=== PATIENT | male | born 1995 | race Caucasian/White ===

== ENCOUNTER 2020-11-27 18:05 | Emergency (ER) | payer OTHER, SELFPAY ==
[2020-11-27 18:30] VITALS: BP 144/103; PULSE 92; RESP 20; TEMP 36.4; O2SAT 100
--- NOTE | 2020-11-27 18:35 | ED_ITS ---
HPI - Extremity Problem General Chief complaint: Extremity Problem,Nontraumatic Stated complaint: L/foot pain Source: patient and RN notes reviewed Limitations: no limitations History of Present Illness HPI Narrative: The obese patient, previously mostly healthy [employer] , presents with toe pain. Patient states he has a prior history of gout, and now symptoms of flare in the last 3 days. Symptoms are mild, located at the left proximal great toe; no injury, streaking. Symptoms improved in the past last year when he went on a diet, but recurred. Related Data Allergies Allergy/AdvReac Type Severity Reaction Status Date / Time levofloxacin [From Levaquin] Allergy Swelling Verified 11/27/20 18:27 Review of Systems Review of Systems: Narrative: The patient has been informed that they may have pre-hypertension or Hypertension based on a BP reading in the department. I recommend that the patient call the primary care provider listed on their discharge instructions or a physician of their choice this week to arrange follow up for further evaluatio n of possible pre-hypertension or Hypertension General/Constitutional: No weight loss,fever Eyes: N0: Redness,discharge Ears/Nose/Throat: No: Epistaxis,ear discharge Respiratory: Denies: Hemoptysis Gastrointestinal: No Vomiting, Bleeding-rectal Skin: No Lumps, eruption Neurologic: No Focal Weakness,Sz Hematologic: Denies: Petechiae/Purpura Psychiatric: No: Suicida ideationl All Other Systems: Reviewed and Negative PMFSH Comments At time of signature, agree with nursing past medical, surgical, social and f amily history. There is no relevant family history pertinent to the presenting complaint Exam Narrative: Exam Narrative: General Appearance: Well nourished,, Conjunctiva clear Mouth/Throat: Normal appearing,supple Respiratory: Airway patent, No respiratory distress MS- foot, gr toe : Normal strength (mostly intact, limited flexion/extension by pain), Tenderness ( laterally, with mild decreased ROM), Swelling (MTPJ- laterally), Other (no anterior drawer, no collateral laxity, Skin: Warm, Dry, Normal color Neurological: A&O x3, Speech clear, , Normal affect Course Vital Signs Vital signs: Vital Signs Temperature 97.6 F 11/27/20 18:30 Pulse Rate 92 11/27/20 18:30 Respiratory Rate 20 11/27/20 18:30 Blood Pressure 144/103 H 11/27/20 18:30 Pulse Oximetry 100 11/27/20 18:30 Temperature 97.6 F 11/27/20 18:30 Pulse Rate 92 11/27/20 18:30 Respiratory Rate 20 11/27/20 18:30 Blood Pressure 144/103 H 11/27/20 18:30 Pulse Oximetry 100 11/27/20 18:30 Discharge Plan Discharge Clinical Impression: Gout Qualifiers: Gout site: foot Gout etiology: unspecified cause Chronicity: acute Laterality: left Qualified Code(s): M10.9 - Gout, unspecified Patient Disposition: Home, Self-Care Condition: Stable Instructions: Gout (ED) Prescriptions: New indomethacin 50 mg capsule 50 mg PO TID Qty: 30 RF: 5 tramadol 50 mg tablet 50 mg PO TID PRN (Reason: pain) Qty: 15 RF: 1 prednisone 20 mg tablet 60 mg PO DAILY Qty: 15 RF: 0 Follow-up/Referrals: Makayla Carrillo MD [Primary Care Provider] -
== END 2020-11-27 18:40 | disposition home or self-care (01) ==
PROVIDERS: Emergency Provider Emergency Medicine; PCP Pediatrics
DX: M10.9 Gout, unspecified (principal)
CPT/HCPCS: 99203; G0463